=== PATIENT | male | born 1985 | race Caucasian/White ===

== ENCOUNTER 2020-06-19 18:23 | Emergency (ER) | payer MEDICAID, SELFPAY ==
[2020-06-19 18:24] VITALS: TEMP 36.7
[2020-06-19 18:32] VITALS: BP 138/82; PULSE 99; RESP 18; O2SAT 97; BMI 26.4
--- NOTE | 2020-06-19 18:37 | [facility].EDDENT ---
ED Disposition Clinical Impression: Pain, dental Disposition: Home, Self-Care Condition on Discharge: Good Instructions: DI for Dental Pain Additional Instructions: Follow-up with dentist within the next several days for reevaluation. Ask your group at [facility] for a local dentist. - Critical Care Critical Care Time: No Attestation: On , the high probability of a clinically significant, sudden or life threatening deterioration of the following system(s) required my full and direct attention, intervention and personal management. The time I documented below is in addition to time spent performing reported procedures but includes the following listed in this critical care notation. Medical Decision Making - Medical Records Medical records reviewed: Yes: I reviewed the patient's medical records. - Reji Inquiry Pt receiving controlled substance: No Vital Signs: 06/19/20 18:32 Pulse Rate [Radial] 99 H Respiratory Rate 18 Blood Pressure [Right Arm] 138/82 Blood Pressure Mean [Right Arm] 100 Blood Pressure Source [Right Arm] Automatic Cuff Blood Pressure Position [Right Arm] Sitting 02 Sat by Pulse Oximetry 97 Oxygen Delivery Method Room Air Medical Decision Narrative: Patient with no obvious signs of infection on exam. Intraoral exam reveals only multiple dental caries, no signs of abscess. No signs of retropharyngeal abscess, Latoya's angina, [employer]. He just finished a course of clindamycin and the next most appropriate course is to follow-up with dentistry. Dental HPI - General Stated complaint: Possible abcess in mouth Time Seen by Provider: 06/19/20 18:37 Mode of Arrival: Ambulatory Source of Information: Patient Limitations: No Limitations Description of Symptoms (Recalled from ER Triage Doc. by RN): States he has a broke tooth and has finished his antibiotic today and he feels the infection is back - History of Present Illness HPI Narrative: 35-year-old male with no significant past medical history who presents to the emergency department for concerns of residual infection. Patient states he had a filling fall out of his left bottom molar about a month and a half ago. He started to have some pain in this area 2 weeks ago. He saw his primary care provider, was placed on clindamycin and just finished the antibiotic today. He has had malaise for about 2 days. No objective fevers. He has not had any intraoral drainage, changes in voice. He has not seen a dentist in over a year. He has not had the feeling replaced. Pain is in the left molar and radiates through his lower jaw. - Related Data Allergies Allergy/AdvReac Type Severity Reaction Status Date / Time No Known Allergies Allergy Verified 06/19/20 18:36 [facility] History - Hepatitis A Screen Drug use history?: No High risk sexual behaviors?: No History of sexually transmitted infection?: No Currently employed?: No Childcare worker?: No Do you have indoor plumbing?: Yes Do you have electricity?: Yes Attestation statement:: This patient has been screened for Hepatitis A risk factors. I have reviewed the patient's past medical history: Yes (Noncontributory) - Social History Alcohol Intake: never Occupational Status: other Housing: house ROS Obtained: Yes All systems reviewed & no additional complaints Physical Exam - General General appearance: alert, in no apparent distress - Head Head exam: atraumatic, normocephalic - Eye Eye exam: Present: normal appearance, PERRL, EOMI - ENT ENT exam: Present: normal exam, normal oropharynx, mucous membranes moist, other (No intraoral abscess. He describes pain around tooth #17. No gingivitis. He has extensive dental caries. No foul odor, no elevation of the floor of the mouth. Midline uvula.) - Neck Neck exam: Present: normal inspection, full ROM, trachea midline. Absent: tenderness, lymphadenopathy - Respiratory Respiratory exam: Absent: respiratory di
[2020-06-19 18:45] VITALS: BP 138/82; PULSE 99; RESP 18; TEMP 36.7; O2SAT 97
== END 2020-06-19 18:53 | disposition home or self-care (01) ==
LOC: ER 18:53
PROVIDERS: Emergency Provider Emergency Medicine
DX: K08.89 Other specified disorders of teeth and supporting structures (principal)
CPT/HCPCS: 99282